=== PATIENT | female | born 1990 | race Caucasian/White ===

== ENCOUNTER 2017-01-17 04:23 | Inpatient (IN) ==
[2017-01-17] MEDS ORDERED: LIDOCAINE 1% (10mg/ml) 2mL INJ PF SDV ID PRN (04:29)
[2017-01-17] MEDS ORDERED: OXYTOCIN DRIP 30 UNIT/500 ML ML IV PRN (04:29)
[2017-01-17] MEDS ORDERED: METHYLERGONOVINE 0.2 MG/ML INJECTION IM PRN (04:29)
[2017-01-17] MEDS ORDERED: CARBOPROST 250 MCG/ML INJECTION IM PRN (04:29)
[2017-01-17] MEDS ORDERED: CALCIUM CARBONATE Chewable 500mg TABLET PO PRN ×2 (04:29→15:52)
[2017-01-17] MEDS ORDERED: ACETAMINOPHEN 500 MG TABLET PO PRN ×2 (04:29→15:52)
[2017-01-17] MEDS ORDERED: D5LR 1,000 ML IV PRN (04:29)
[2017-01-17] MEDS ORDERED: MAG-AL + SIM ORAL LIQUID 30ml PO PRN ×2 (04:29→15:52)
[2017-01-17] MEDS ORDERED: LR 1,000 ML IV SCH (05:45)
[2017-01-17] MEDS ORDERED: BUTORPHANOL 2 MG/ML INJECTION IVP PRN (12:48)
[2017-01-17 12:59] VITALS: BMI 29.4
[2017-01-17] MEDS ORDERED: OXYTOCIN DRIP 30 UNIT/500 ML ML IV SCH (15:52)
[2017-01-17] MEDS ORDERED: DiphenhydrAMINE 25 MG CAPSULE PO PRN (15:52)
[2017-01-17] MEDS ORDERED: HYDROCORTISONE 2.5% CREAM 30gm RECTALLY PRN (15:52)
[2017-01-17] MEDS ORDERED: SALINE FLUSH 10ml SYRINGE IVF PRN (15:52)
[2017-01-17] MEDS: IBUPROFEN 800 MG TABLET PO SCH ×2 (15:56→23:46)
--- NOTE | 2017-01-17 16:11 | Labor and Delivery Note ---
DATE 01/17/2017 Ms. Gan progressed very well in first stage of labor. She began to push with excellent effort at the complete and +2 position. She pushed for a few contractions, delivering the head in the OA presentation. There was a loose nuchal cord x2 that was reduced. Baby was bulb suctioned on the perineum. With a further push, she delivered baby in total. Baby was then further bulb suctioned and placed on mother's abdomen. After about 2-1/2 minutes the cord was doubly clamped. It was cut by the patient's mother. This is a liveborn male with Apgars of 8/9/9. He weighed 7 pounds, 11.0 ounces. In a few moments, the placenta delivered spontaneously, intact. It had a normal configuration and a normal-appearing three-vessel cord. There was a first- degree midline laceration on the perineum that was hemostatic and not repaired. There was also a superficial periurethral midline laceration that was hemostatic and was also not repaired. Total blood loss was approximately 300 mL. At the time of this dictation, mother and baby are doing well. [facility]
[2017-01-17] MEDS: HYDROCODONE/APAP 5mg/325mg TABLET PO PRN ×2 (16:15→22:09)
[2017-01-18 05:21] VITALS: RESP 16; TEMP 98.6
--- NOTE | 2017-01-18 07:39 | Pharmacy Consult ---
Pharmacy Consult-Rhophylac - Laboratory Information 01/17/17 01/17/17 01/17/17 05:14 15:52 20:31 Hgb /Adult Ratio 0.0003 Blood Type O Negative RhIG Candidate? Is a candidate Baby blood type (Reynaldo Gan) confirmed as "O positive". Based on Hgb /Adult ration, will give mom one dose of Rho D Immune Globulin 300mcg dose. Thank you
[2017-01-18] MEDS ORDERED: RHO(D) IMMUNE GLOBULIN 300 MCG/2 ML INJECTION IVP ONE (07:45)
[2017-01-18] MEDS: IBUPROFEN 800 MG TABLET PO SCH (07:46)
[2017-01-18] MEDS: DOCUSATE CALCIUM 240 MG CAPSULE PO SCH ×2 (07:50→14:26)
[2017-01-18] MEDS: PRENATAL VITAMIN TABLET PO SCH ×2 (07:50→14:26)
[2017-01-18] MEDS: HYDROCODONE/APAP 5mg/325mg TABLET PO PRN ×2 (07:51→14:49)
--- NOTE | 2017-01-18 09:20 | OB/GYN Progress Note ---
OB-PP Progress Note - General PPD1 Maternal Group B Strep: Negative Maternal blood type: O- Maternal Rubella Status: Immune General: Baby Rh pos - Subjective Date: 01/18/17 Lochia: Minimal Pain: contolled Voiding: voiding - Objective Vital Signs: Last Vital Signs Temp 98.6 F 01/18/17 04:17 Pulse 94 01/18/17 04:17 Resp 16 01/18/17 04:17 BP 131/72 01/18/17 04:17 Pulse Ox 100 01/17/17 12:28 General: alert and oriented Abdomen: fundus firm, non-tender Extremities: non-tender Laboratory: Laboratory Results - last 24 hr 01/17/17 01/17/17 01/17/17 05:14 15:52 20:31 Hgb /Adult Ratio 0.0003 Blood Type O Negative Antibody Screen Positive A* Antibody Identification Immune D RhIG Candidate? Is a candidate - Assessment Assessment: , Preeclampsia - Plan Plan: routine care, rhophylac, discharge home, continue PNV
--- NOTE | 2017-01-18 09:23 | Discharge Instructions ---
Discharge Plan - Med Rec/Dispo Prescriptions: New Hydrocodone/APAP 5/325 [[place] 5/325] 1 - 2 tab PO Q4H PRN #20 tab PRN Reason: Pain Ibuprofen [Motrin] 800 mg PO Q8H #30 tab Continue Vits W-Ca,Fe,Fa(<1MG) ( Vitamins) 1 tab PO DAILY #0 tab Discharge Instructions/Outpatient Orders: Final Provider Discharge Instructions Location: Determined By Patient - Disposition 01 Discharged Home, Self-Care
[2017-01-18 12:38] VITALS: BP 117/64; PULSE 85; O2SAT 99
== END 2017-01-18 17:00 | disposition home or self-care (01) | DRG 775 ==
LOC: MC 04:23
PROVIDERS: ADMIT Obstetrics & Gynecology; ATTEND Obstetrics & Gynecology